=== PATIENT | female | born 1945 | race Caucasian/White ===

== ENCOUNTER 2017-10-27 11:33 | Day surgery (SDC) | payer MEDICARE ==
[~2017-10-27] VITALS: Ht 162.6 cm; Wt 75.9 kg
[~2017-10-27 11:33] MED LIST: ASPI-611 PO; CHOL100046 PO; CYAN25003 PO; FLUO20CA39 PO; HYDR-565 PO; LISI1TAB11 PO; OMEP20CA10 PO; SIMV80TA2 PO
[2017-10-27 11:54] VITALS: BP 163/73
[2017-10-27] MEDS ORDERED: MIDAZolam 5mg/5ml vial ONE (11:59)
[2017-10-27] MEDS ORDERED: fentaNYL/PF 50MCG/1 ML 2ML syringe ONE (11:59)
[2017-10-27] MEDS ORDERED: LIDOcaine Viscous 15ml cup ONE (11:59)
[2017-10-27 13:26] VITALS: BP 154/82
[2017-10-27 13:35] VITALS: BP 158/61
[2017-10-27 13:45] VITALS: BP 170/78
[2017-10-27 13:55] VITALS: BP 161/66
[2017-10-27 14:05] VITALS: BP 182/74
== END 2017-10-27 14:20 | disposition home or self-care (01) ==
LOC: GI LAB 11:33
PROVIDERS: ATTEND Internal Medicine Gastroenterology
DX: K44.9 Diaphragmatic hernia without obstruction or gangrene (principal)
CPT/HCPCS: 43235; J2250; J3010; J7030; A4620; G0500